=== PATIENT | female | born 1950 ===

== ENCOUNTER 2017-03-22 17:08 | Emergency (ER) | payer MEDICARE, BC ==
[2017-03-22 17:35] VITALS: BP 132/98
--- NOTE | 2017-03-22 18:35 | UC ---
Lower Extremity/Ankle HPI - HPI Summary HPI Summary: Patient presents to with left foot pain x 2 days. Denies injury. She states she was walking up the stairs when the foot began to hurt. Never injured the area before. Pain is 7/10 and does not radiate. Denies numbness/tingling, color or temperature changes. - History of Current Complaint Chief Complaint: UCLowerExtremity Stated Complaint: LEFT FOOT PAIN Hx Obtained From: Patient ?: No Onset/Duration: Sudden Onset Severity Initially: Moderate Severity Currently: Moderate Pain Intensity: 5 Pain Scale Used: 0-10 Numeric Aggravating Factor(s): Standing, Ambulation Alleviating Factor(s): Rest, Elevation Able to Bear Weight: Yes - Risk Factors Gout Risk Factors: Negative DVT Risk Factors: Negative Septic Arthritis Risk Factor: Negative - Allergies/Home Medications Allergies/Adverse Reactions: Allergies Allergy/AdvReac Type Severity Reaction Status Date / Time Amoxicillin Allergy Hives Verified 03/22/17 17:29 Home Medications: Home Medications Acetaminophen TAB* [Tylenol TAB*] 1,500 mg PO ONCE PRN 03/22/17 [History Confirmed 03/22/17] Amitriptyline TAB* [Elavil TAB*] 75 mg PO BEDTIME 03/22/17 [History Confirmed ] Calcium Carbonate-Cholecalcife [Calcium 600/Vitamin D] 1 tab PO DAILY 03/22/17 [ History Confirmed 03/22/17] Enalapril TAB* [Vasotec TAB*] 20 mg PO DAILY 03/22/17 [History Confirmed ] Fenofibrate [Lofibra] 160 mg PO DAILY 03/22/17 [History Confirmed 03/22/17] Insulin Aspart [Novolog] 0 unit SC SEE INSTRUCTIONS 03/22/17 [History Confirmed 03/22/17] Insulin GLARGINE(*) [Lantus(*)] 90 units SUBCUT DAILY 03/22/17 [History Confirmed 03/22/17] Multivitamins/Minerals TAB* [Thera M Plus TAB*] 1 tab PO DAILY 03/22/17 [ History Confirmed 03/22/17] Simvastatin (NF) [Zocor (NF)] 40 mg PO DAILY 03/22/17 [History Confirmed ] metFORMIN* [Glucophage 1000 MG TAB *] 1,000 mg PO BID 03/22/17 [History Confirmed 03/22/17] PMH/Surg Hx/FS Hx/Imm Hx Previously Healthy: Yes - Surgical History Surgical History: Yes Surgery Procedure, Year, and Place: hysterectomy - Social History Occupation: Employed Part-time Lives: With Family Alcohol Use: None Substance Use Type: None Smoking Status (MU): Never Smoked Tobacco Have You Smoked in the Last Year: No Review of Systems Constitutional: Negative Skin: Negative Respiratory: Negative Cardiovascular: Negative Motor: Negative Neurological: Negative Psychological: Negative All Other Systems Reviewed And Are Negative: Yes Physical Exam Triage Information Reviewed: Yes Appearance: Well-Appearing, No Pain Distress, Well-Nourished Vital Signs: Initial Vital Signs Temp 98.4 F 03/22/17 17:31 Pulse 97 03/22/17 17:31 Resp 16 03/22/17 17:31 BP 132/98 03/22/17 17:31 Pulse Ox 95 03/22/17 17:31 Vital Signs Reviewed: Yes Eye Exam: Normal Eyes: Positive: Conjunctiva Clear Neck exam: Normal Neck: Positive: Supple, No Lymphadenopathy Respiratory Exam: Normal Respiratory: Positive: Chest non-tender Cardiovascular Exam: Normal Cardiovascular: Positive: RRR Musculoskeletal Exam: Normal Neurological Exam: Normal Neurological: Positive: Alert Psychological: Positive: Normal Response To Family Skin Exam: Normal Lower Extremity Course/Dx - Course Course Of Treatment: Sent to xray. No fractures noted. Likely a foot tendonitits from prolonged standing. Encouraged rest and ibuprofen with referral to Dr. Mijares if symptoms persist. - Differential Dx/Diagnosis Differential Diagnosis/HQI/PQRI: Sprain, Strain, Tendonitis Provider Diagnoses: Foot Tendonitis Discharge - Discharge Plan Condition: Stable Disposition: HOME Patient Education Materials: Musculoskeletal Pain (ED) Referrals: Isabella Gates NP [Primary Care Provider] - Additional Instructions: Ibuprofen 600mg three times daily with meals for pain. Follow up with orthopedic physician in 5-7 days. If numbness, tingling, decreased sensation, increased pain, temperature changes or pallor noted in toes, come back to UC immediately. Protect the area. For your comfort level, do not bear weight, pull or push until you can injury is somewhat healed. This may involve the need for immobilization or crutches for a period of time. Rest the involved area, but not too long. You may need to be off your injury for some time to allow for healing, however excessive immobilization of joints can lead to stiffness and delay healing time. Early mobilization is encouraged if it is pain-free. Ice. Not directly on the skin. Cover with a towel. Apply ice no more than 30 minutes at a time
--- NOTE | 2017-03-22 18:51 | RAD ---
Indication: 2 days LEFT foot pain with difficulty walking. Pain at the forefoot along distal aspect of the fifth metacarpal phalangeal joint. No known injury. Comparison: No relevant prior exams available on the [facility] PACS for comparison. Technique: AP, lateral, and oblique views LEFT foot. Report: Normal articular alignment. Bone density appears decreased throughout. No fracture or radiographic stigmata of stress reaction evident. Subtle os peroneum accessory ossicles. 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 Small Achilles tendon insertion and moderate plantar fascia origin bone spurs. Nonfocal soft tissue swelling. IMPRESSION: Negative for fracture or radiographic stigmata of stress reaction. Mild osteoarthritis. Mild nonfocal soft tissue swelling.
== END 2017-03-22 19:06 | disposition home or self-care (01) ==
LOC: UCCORT 17:08
DX: M77.9 Enthesopathy, unspecified (principal); Z88.0 Allergy status to penicillin
CPT/HCPCS: 99202; G0463